=== PATIENT | female | born 1935 ===

== ENCOUNTER 2024-09-30 18:40 | Observation (INO) | payer MEDICARE, OTHER ==
[~2024-09-30] VITALS: Ht 152.4 cm; Wt 57.3 kg
[2024-09-30 20:56] VITALS: BP 153/64
[2024-09-30] MEDS ORDERED: Clopidogrel Bisulfate 300 MG TABLET PO ONE (21:25)
[2024-09-30] MEDS ORDERED: ALBU8HFA2 INH (21:31)
[2024-09-30] MEDS ORDERED: OMEP20ER PO (21:32)
[2024-09-30] MEDS ORDERED: PRESERVISION A1 EAC5 PO (21:33)
[2024-09-30] MEDS ORDERED: EUTHYROX125 MCG PO (21:34)
[2024-09-30] MEDS ORDERED: LOSARTAN-HCTZ1 EACH PO (21:35)
[2024-09-30] MEDS ORDERED: Ondansetron HCl 2 MG / ML 2ML Vial IV PRN (21:35)
[2024-09-30] MEDS ORDERED: WARF2.5 PO (21:36)
[2024-09-30] MEDS ORDERED: METO50 PO (21:37)
[2024-09-30] MEDS ORDERED: Prozac20 MG PO (21:38)
[2024-09-30] MEDS ORDERED: OXYB5 PO (21:38)
[2024-09-30] MEDS ORDERED: Norco 5-325 Ta1 EACH PO (21:39)
[2024-09-30] MEDS ORDERED: CYCLOBENZAPRINE5 MG PO (21:39)
[2024-09-30] MEDS ORDERED: HYDPAM25 PO (21:41)
[2024-09-30 21:53] LABS: BASOPHILS ABSOLUTE AUTO 0.03 K/mm3 (0.00-0.23); BASOPHILS PERCENT AUTO 1 % (0-2); EOSINOPHILS ABSOLUTE AUTO 0.07 K/mm3 (0.00-0.68); EOSINOPHILS PERCENT AUTO 1 % (0-6); Hematocrit 30.3 % (33.0-51.0); Hemoglobin 10.6 g/dL (11.5-16.0); IMMATURE GRAN ABSOLUTE AUTO 0.02 K/mm3 (0.00-0.10); IMMATURE GRAN PERCENT AUTO 0 % (0-1); LYMPHOCYTES ABSOLUTE AUTO 1.04 K/mm3 (0.84-5.20); LYMPHOCYTES PERCENT AUTO 16 % (21-46); MONOCYTES ABSOLUTE AUTO 0.77 K/mm3 (0.16-1.47); MONOCYTES PERCENT AUTO 12 % (4-13); Mean Corpuscular HGB 30.7 pg (26.0-34.0); Mean Corpuscular Volume 88 fL (80-100); Mean Platelet Volume 10.3 fL (9.1-12.4); NEUTROPHILS ABSOLUTE AUTO 4.67 K/mm3 (1.96-9.15); NEUTROPHILS PERCENT AUTO 71 % (41-73); Platelet Count 208 K/mm3 (150-400); RDW Coefficient Variation 13.2 % (11.7-14.2); RDW Standard Deviation 42.7 fL (35.1-46.3); Red Blood Cell Count 3.45 M/mm3 (3.80-5.20)
[2024-09-30 22:01] LABS: Anti-Xa UFH, PHA Monitoring <0.10 IU/mL; Prothrombin Time Results 30.4 Sec (9.7-11.5)
[2024-09-30 22:11] LABS: Albumin, Blood 3.2 g/dL (3.4-5.0); Albumin/Globulin Ratio 0.9 (0.8-1.8); Bilirubin, Total 0.7 mg/dL (0.1-1.0); Bun/Creatinine Ratio 14.9 (12.0-20.0); Calcium, Blood 8.2 mg/dL (8.5-10.1); Creatinine, Blood 0.81 mg/dL (0.40-1.00); Globulin, Blood 3.5 g/dL (2.2-4.0); Potassium, Blood 3.6 mmol/L (3.5-5.5); Total Protein, Blood 6.7 g/dL (6.4-8.2)
[2024-09-30 23:17] VITALS: BP 132/50
[2024-10-01] MEDS ORDERED: Clopidogrel Bisulfate 300 MG TABLET PO ONE (01:00)
[2024-10-01 01:36] LABS: Source, Urine Clean Catch
[2024-10-01 01:54] LABS: Bilirubin, Urine Neg (Neg); Blood, Urine 3+ (Neg); Glucose Qualitative, Urine Neg (Neg); Ketones, Urine Neg (Neg); Leukocyte Esterase, Urine 1+ (Neg); Nitrite, Urine Neg (Neg); Protein, Urine 2+ (Neg); Urobilinogen, Urine NORM (Normal)
[2024-10-01 02:02] LABS: Appearance, Urine Clear (Clear); Color, Urine Pale Yellow (P-Yellow)
[2024-10-01 02:03] LABS: Bacteria Few /hpf; Red Blood Cells, Urine 0-2 /hpf (0-2); Squamous Epithelial Cells Few /hpf (Few); White Blood Cells, Urine 0-2 /hpf (0-5)
[2024-10-01 03:42] LABS: BASOPHILS ABSOLUTE AUTO 0.04 K/mm3 (0.00-0.23); BASOPHILS PERCENT AUTO 1 % (0-2); EOSINOPHILS ABSOLUTE AUTO 0.13 K/mm3 (0.00-0.68); EOSINOPHILS PERCENT AUTO 2 % (0-6); Hematocrit 29.7 % (33.0-51.0); Hemoglobin 10.1 g/dL (11.5-16.0); IMMATURE GRAN ABSOLUTE AUTO 0.02 K/mm3 (0.00-0.10); IMMATURE GRAN PERCENT AUTO 0 % (0-1); LYMPHOCYTES ABSOLUTE AUTO 1.31 K/mm3 (0.84-5.20); LYMPHOCYTES PERCENT AUTO 21 % (21-46); MONOCYTES ABSOLUTE AUTO 0.88 K/mm3 (0.16-1.47); MONOCYTES PERCENT AUTO 14 % (4-13); Mean Corpuscular HGB 30.6 pg (26.0-34.0); Mean Corpuscular Volume 90 fL (80-100); NEUTROPHILS ABSOLUTE AUTO 3.85 K/mm3 (1.96-9.15); NEUTROPHILS PERCENT AUTO 62 % (41-73); Platelet Count 189 K/mm3 (150-400); RDW Coefficient Variation 13.2 % (11.7-14.2); RDW Standard Deviation 43.5 fL (35.1-46.3); White Blood Cell Count 6.23 K/mm3 (4.00-11.30)
[2024-10-01 03:58] LABS: International Normalized Ratio 3.26; Prothrombin Time Results 32.9 Sec (9.7-11.5)
[2024-10-01 04:04] LABS: Albumin, Blood 3.1 g/dL (3.4-5.0); Albumin/Globulin Ratio 0.9 (0.8-1.8); Bilirubin, Total 0.7 mg/dL (0.1-1.0); Bun/Creatinine Ratio 13.7 (12.0-20.0); Calcium, Blood 8.3 mg/dL (8.5-10.1); Creatinine, Blood 0.88 mg/dL (0.40-1.00); Globulin, Blood 3.3 g/dL (2.2-4.0); Potassium, Blood 3.4 mmol/L (3.5-5.5); Total Protein, Blood 6.4 g/dL (6.4-8.2)
[2024-10-01 04:38] VITALS: BP 135/55
[2024-10-01 07:35] VITALS: BP 161/57
[2024-10-01] MEDS ORDERED: Cyclobenzaprine HCl 10 MG Tab PO PRN (07:45)
[2024-10-01] MEDS ORDERED: TraZODone HCl 50 MG Tab PO PRN (07:50)
[2024-10-01] MEDS ORDERED: Docusate Sodium/Senna 1 Tab PO PRN (07:50)
[2024-10-01] MEDS ORDERED: Acetaminophen 325 MG TABLET PO PRN (07:50)
[2024-10-01] MEDS ORDERED: Albuterol 2.5 MG/3 ML VIAL INH PRN (07:50)
[2024-10-01] MEDS ORDERED: Potassium Chloride 20 MEQ TabCR PO ONE (08:00)
[2024-10-01] MEDS ORDERED: Metoprolol Tartrate 25 MG Tab PO SCH ×3 (09:00→21:00)
[2024-10-01] MEDS ORDERED: Losartan Potassium 50 MG Tab PO SCH (09:00)
[2024-10-01] MEDS ORDERED: oxyBUTYnin chloride 5 MG TAB PO SCH (09:00)
[2024-10-01] MEDS ORDERED: Clopidogrel Bisulfate 75 MG Tab PO SCH (09:00)
[2024-10-01] MEDS ORDERED: FLUoxetine HCL 20 MG CAP PO SCH (09:00)
[2024-10-01 12:23] VITALS: BP 134/55
[2024-10-01 16:37] VITALS: BP 159/72
[2024-10-01 19:28] VITALS: BP 163/84
[2024-10-01 23:52] VITALS: BP 148/64
[2024-10-02] VITALS (9 sets, daily range): BP systolic 122–184; BP diastolic 48–89
[2024-10-02 04:30] LABS: International Normalized Ratio 2.86; Prothrombin Time Results 29.1 Sec (9.7-11.5)
[2024-10-02] MEDS ORDERED: Omeprazole 20 MG CapCR PO SCH (06:00)
[2024-10-02] MEDS ORDERED: Levothyroxine Sodium 0.125 MG Tab PO SCH (06:00)
[2024-10-02 06:08] LABS: BASOPHILS ABSOLUTE AUTO 0.05 K/mm3 (0.00-0.23); BASOPHILS PERCENT AUTO 1 % (0-2); EOSINOPHILS ABSOLUTE AUTO 0.25 K/mm3 (0.00-0.68); EOSINOPHILS PERCENT AUTO 4 % (0-6); Hematocrit 31.2 % (33.0-51.0); IMMATURE GRAN ABSOLUTE AUTO 0.03 K/mm3 (0.00-0.10); IMMATURE GRAN PERCENT AUTO 0 % (0-1); LYMPHOCYTES ABSOLUTE AUTO 1.06 K/mm3 (0.84-5.20); LYMPHOCYTES PERCENT AUTO 15 % (21-46); MONOCYTES ABSOLUTE AUTO 0.78 K/mm3 (0.16-1.47); MONOCYTES PERCENT AUTO 11 % (4-13); Mean Corpuscular HGB 32.3 pg (26.0-34.0); Mean Corpuscular HGB Conc 35.3 g/dL (31.5-36.5); Mean Corpuscular Volume 92 fL (80-100); Mean Platelet Volume 10.7 fL (9.1-12.4); NEUTROPHILS ABSOLUTE AUTO 4.97 K/mm3 (1.96-9.15); NEUTROPHILS PERCENT AUTO 70 % (41-73); Platelet Count 204 K/mm3 (150-400); RDW Coefficient Variation 13.4 % (11.7-14.2); RDW Standard Deviation 43.8 fL (35.1-46.3); Red Blood Cell Count 3.41 M/mm3 (3.80-5.20); White Blood Cell Count 7.14 K/mm3 (4.00-11.30)
[2024-10-02 06:46] LABS: Albumin, Blood 3.2 g/dL (3.4-5.0); Albumin/Globulin Ratio 0.9 (0.8-1.8); Bilirubin, Total 0.5 mg/dL (0.1-1.0); Bun/Creatinine Ratio 18.6 (12.0-20.0); Calcium, Blood 8.5 mg/dL (8.5-10.1); Creatinine, Blood 0.92 mg/dL (0.40-1.00); Globulin, Blood 3.5 g/dL (2.2-4.0); Magnesium, Blood 1.8 mg/dL (1.6-2.4); Potassium, Blood 4.3 mmol/L (3.5-5.5); Total Protein, Blood 6.7 g/dL (6.4-8.2)
[2024-10-02] MEDS ORDERED: Regadenoson 0.4 MG/5 ML SYRINGE ONE (08:02)
[2024-10-02] MEDS ORDERED: Nitrofurantoin/Nitrofuran Mac 100 MG Cap PO SCH (09:00)
[2024-10-02] MEDS ORDERED: Aspirin 81 MG TabEC PO SCH (09:00)
[2024-10-02] MEDS ORDERED: Metoprolol Tartrate 25 MG Tab PO SCH (09:00)
[2024-10-02] MEDS ORDERED: Losartan Potassium 50 MG Tab PO SCH (09:00)
[2024-10-02] MEDS ORDERED: HydrALAZINE HCl 20 MG / ML 1ML Vial IV PRN (10:45)
[2024-10-03 05:08] VITALS: BP 186/60
[2024-10-03 07:18] VITALS: BP 164/57
[2024-10-03 09:22] LABS: Hematocrit 32.3 % (33.0-51.0); Hemoglobin 10.7 g/dL (11.5-16.0)
[2024-10-03 09:36] LABS: International Normalized Ratio 1.51; Prothrombin Time Results 16.1 Sec (9.7-11.5)
[2024-10-03 09:46] LABS: Bun/Creatinine Ratio 19.4 (12.0-20.0); Creatinine, Blood 1.03 mg/dL (0.40-1.00); Magnesium, Blood 1.9 mg/dL (1.6-2.4)
[2024-10-03] MEDS ORDERED: METO25ER PO (11:57)
[2024-10-03] MEDS ORDERED: NITR100CA PO (11:57)
== END 2024-10-03 15:56 | disposition home health service (06) ==
LOC: PCU 18:40 → MEDS 10-02 21:32
PROVIDERS: Hospitalist; Internal Medicine; ADMIT Family Medicine
DX: R79.89 Other specified abnormal findings of blood chemistry (principal); R07.9 Chest pain, unspecified; R11.2 Nausea with vomiting, unspecified; R19.7 Diarrhea, unspecified; I10 Essential (primary) hypertension; E03.9 Hypothyroidism, unspecified; E78.5 Hyperlipidemia, unspecified; D18.00 Hemangioma unspecified site; Z79.01 Long term (current) use of anticoagulants; Z79.890 Hormone replacement therapy; Z79.899 Other long term (current) drug therapy; Z88.0 Allergy status to penicillin; Z88.1 Allergy status to other antibiotic agents; Z88.6 Allergy status to analgesic agent; Z88.8 Allergy status to other drugs, medicaments and biological substances
CPT/HCPCS: 36415; 71101; 78452; 80048; 80053; 81001; 83735; 84484; 85014; 85018; 85025; 85520; 85610; 85730; 87086; 93017; 93306; 94640; 94664; 94760; 94762; 96374; 96375; 96376; 97161; 97530; A9270; A9500; G0378; J0360; J2405; J2785